=== PATIENT | female | born 2005 | race Two or more races ===

== ENCOUNTER 2023-08-04 14:03 | Emergency (ER) | payer MEDICAID, OTHER ==
[~2023-08-04] VITALS: Ht 152.4 cm; Wt 40.5 kg
[2023-08-04 15:31] LABS: Urine Bacteria FEW /hpf (None Seen); Urine Blood 2+ /uL (Negative); Urine Clarity Clear (Clear); Urine Color Yellow (Yellow); Urine Mucus FEW (None Seen); Urine Protein, UAD Negative (Negative); Urine Specific Gravity 1.016 (1.001-1.035); Urine Urobilinogen Normal (Negative); Urine WBC 1 /hpf (0 - 5)
[2023-08-04 16:26] VITALS: BP 128/37; PULSE 61; RESP 14; TEMP 97.5; O2SAT 100
== END 2023-08-04 16:35 | disposition left against medical advice (07) ==
LOC: ER 14:03
DX: H92.01 Otalgia, right ear (principal); Z53.21 Procedure and treatment not carried out due to patient leaving prior to being seen by health care provider
CPT/HCPCS: 81001